=== PATIENT | female | born 1995 | race American Indian/Alaskan Native ===

== ENCOUNTER 2021-01-02 11:34 | Emergency (ER) | payer MEDICAID ==
[2021-01-02 11:48] VITALS: BP 112/70
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
[2021-01-02] MEDS ORDERED: CYCLOBENZAPRINE 10 MG TAB PO ONE (11:53)
[2021-01-02] MEDS ORDERED: methylPREDNISolone ACETATE 80 MG/1 ML INJ IM ONE (11:53)
== END 2021-01-02 13:03 | disposition home or self-care (01) ==
LOC: ED 11:34
DX: M79.18 Myalgia, other site (principal); Z79.899 Other long term (current) drug therapy; V49.59XA Passenger injured in collision with other motor vehicles in traffic accident, initial encounter; Y92.410 Unspecified street and highway as the place of occurrence of the external cause; Y93.89 Activity, other specified; Y99.8 Other external cause status
CPT/HCPCS: 96372; 99282; J1040